=== PATIENT | male | born 1970 | race Caucasian/White ===

== ENCOUNTER 2024-08-19 10:07 | Emergency (ER) | payer OTHER ==
[~2024-08-19] VITALS: Ht 177.8 cm; Wt 81.6 kg
== END 2024-08-19 10:56 ==
LOC: ER 10:17
DX: S01.81XA Laceration without foreign body of other part of head, initial encounter (principal); R45.1 Restlessness and agitation; W22.8XXA Striking against or struck by other objects, initial encounter; Y93.89 Activity, other specified; Y92.098 Other place in other non-institutional residence as the place of occurrence of the external cause; Y99.8 Other external cause status